=== PATIENT | male | born 1945 | race Caucasian/White ===

== ENCOUNTER 2023-04-20 14:49 | Emergency (ER) | payer OTHER, MEDICARE ==
[~2023-04-20] VITALS: Ht 167.6 cm; Wt 170.1 kg
[~2023-04-20 14:49] MED LIST: ALBUTEROL INH; ASPI325 PO; ATROVENT INH; CALCAVITD PO; CHOL10002; CITA20 PO; CYAN1000 PO; FISH1000 PO; Humulin N100 UNIT/1 SQ; INSUASPI SC; LEVO750 PO; LORA10 PO; METF500 PO; PRED10 PO; Prinivil10 MG PO; SIMV10 PO
[2023-04-20 15:17] VITALS: BP 148/88
[2023-04-20 16:14] LABS: BASOPHILS ABSOLUTE AUTO 0.06 K/mm3 (0.00-0.23); BASOPHILS PERCENT AUTO 1 % (0-2); EOSINOPHILS ABSOLUTE AUTO 0.11 K/mm3 (0.00-0.68); EOSINOPHILS PERCENT AUTO 1 % (0-6); Hematocrit 49.4 % (37.0-53.0); Hemoglobin 16.7 g/dL (13.5-17.5); IMMATURE GRAN ABSOLUTE AUTO 0.08 K/mm3 (0.00-0.10); IMMATURE GRAN PERCENT AUTO 1 % (0-1); LYMPHOCYTES PERCENT AUTO 27 % (21-46); MONOCYTES ABSOLUTE AUTO 0.89 K/mm3 (0.16-1.47); MONOCYTES PERCENT AUTO 7 % (4-13); Mean Corpuscular HGB 28.7 pg (26.0-34.0); Mean Corpuscular HGB Conc 33.8 g/dL (31.5-36.5); Mean Corpuscular Volume 85 fL (80-100); Mean Platelet Volume 11.5 fL (9.1-12.4); NEUTROPHILS ABSOLUTE AUTO 7.96 K/mm3 (1.96-9.15); NEUTROPHILS PERCENT AUTO 64 % (41-73); Platelet Count 317 K/mm3 (150-400); RDW Coefficient Variation 14.1 % (11.7-14.2); RDW Standard Deviation 43.1 fL (35.1-46.3); Red Blood Cell Count 5.81 M/mm3 (4.30-5.90)
[2023-04-20 16:33] LABS: Albumin, Blood 3.2 g/dL (3.4-5.0); Albumin/Globulin Ratio 0.9 (0.8-1.8); Bilirubin, Total 0.9 mg/dL (0.1-1.0); Bun/Creatinine Ratio 19.3 (12.0-20.0); Calcium, Blood 8.9 mg/dL (8.5-10.1); Creatinine, Blood 0.78 mg/dL (0.60-1.20); Globulin, Blood 3.7 g/dL (2.2-4.0); Potassium, Blood 3.7 mmol/L (3.5-5.5); Total Protein, Blood 6.9 g/dL (6.4-8.2)
[2023-04-20 17:07] LABS: BASOPHILS ABSOLUTE AUTO 0.07 K/mm3 (0.00-0.23); BASOPHILS PERCENT AUTO 1 % (0-2); EOSINOPHILS ABSOLUTE AUTO 0.15 K/mm3 (0.00-0.68); EOSINOPHILS PERCENT AUTO 1 % (0-6); Hematocrit 50.4 % (37.0-53.0); Hemoglobin 16.8 g/dL (13.5-17.5); IMMATURE GRAN ABSOLUTE AUTO 0.14 K/mm3 (0.00-0.10); IMMATURE GRAN PERCENT AUTO 1 % (0-1); LYMPHOCYTES PERCENT AUTO 33 % (21-46); MONOCYTES ABSOLUTE AUTO 1.06 K/mm3 (0.16-1.47); MONOCYTES PERCENT AUTO 7 % (4-13); Mean Corpuscular HGB 28.4 pg (26.0-34.0); Mean Corpuscular HGB Conc 33.3 g/dL (31.5-36.5); Mean Corpuscular Volume 85 fL (80-100); Mean Platelet Volume 10.9 fL (9.1-12.4); NEUTROPHILS ABSOLUTE AUTO 8.34 K/mm3 (1.96-9.15); NEUTROPHILS PERCENT AUTO 58 % (41-73); Platelet Count 344 K/mm3 (150-400); RDW Coefficient Variation 13.8 % (11.7-14.2); RDW Standard Deviation 42.9 fL (35.1-46.3); Red Blood Cell Count 5.91 M/mm3 (4.30-5.90); White Blood Cell Count 14.46 K/mm3 (4.00-11.30)
[2023-04-20 17:28] LABS: Albumin, Blood 3.5 g/dL (3.4-5.0); Albumin/Globulin Ratio 0.9 (0.8-1.8); Bun/Creatinine Ratio 18.2 (12.0-20.0); Creatinine, Blood 0.88 mg/dL (0.60-1.20); Globulin, Blood 3.8 g/dL (2.2-4.0); Potassium, Blood 3.6 mmol/L (3.5-5.5); Total Protein, Blood 7.3 g/dL (6.4-8.2)
== END 2023-04-20 18:39 | disposition home or self-care (01) ==
LOC: ER 14:49
PROVIDERS: Student in an Organized Health Care Education/Training Program
DX: Z04.3 Encounter for examination and observation following other accident (principal); I10 Essential (primary) hypertension; Z79.82 Long term (current) use of aspirin; Z79.52 Long term (current) use of systemic steroids; Z79.899 Other long term (current) drug therapy; Z87.891 Personal history of nicotine dependence; W01.0XXA Fall on same level from slipping, tripping and stumbling without subsequent striking against object, initial encounter; Y92.002 Bathroom of unspecified non-institutional (private) residence as the place of occurrence of the external cause
CPT/HCPCS: 71046; 80053; 82550; 83880; 84484; 85025; 93005; 93010; 99285-25

== ENCOUNTER 2023-04-21 07:14 | Inpatient (IN) | payer MEDICARE ==
[~2023-04-21] VITALS: Ht 167.6 cm; Wt 149.7 kg
[2023-04-21 08:23] LABS: BASOPHILS ABSOLUTE AUTO 0.03 K/mm3 (0.00-0.23); BASOPHILS PERCENT AUTO 0 % (0-2); EOSINOPHILS ABSOLUTE AUTO 0.03 K/mm3 (0.00-0.68); EOSINOPHILS PERCENT AUTO 0 % (0-6); Hematocrit 51.2 % (37.0-53.0); Hemoglobin 17.3 g/dL (13.5-17.5); IMMATURE GRAN ABSOLUTE AUTO 0.14 K/mm3 (0.00-0.10); IMMATURE GRAN PERCENT AUTO 1 % (0-1); LYMPHOCYTES ABSOLUTE AUTO 1.08 K/mm3 (0.84-5.20); LYMPHOCYTES PERCENT AUTO 7 % (21-46); MONOCYTES ABSOLUTE AUTO 0.55 K/mm3 (0.16-1.47); MONOCYTES PERCENT AUTO 4 % (4-13); Mean Corpuscular HGB 28.9 pg (26.0-34.0); Mean Corpuscular HGB Conc 33.8 g/dL (31.5-36.5); Mean Corpuscular Volume 86 fL (80-100); NEUTROPHILS ABSOLUTE AUTO 12.88 K/mm3 (1.96-9.15); NEUTROPHILS PERCENT AUTO 88 % (41-73); NRBC ABSOLUTE 0.02 K/mm3 (0.00-0.02); NRBC Auto 0.1 /100 WBC (0.0-0.2); RDW Coefficient Variation 13.9 % (11.7-14.2); RDW Standard Deviation 43.5 fL (35.1-46.3); Red Blood Cell Count 5.99 M/mm3 (4.30-5.90); White Blood Cell Count 14.71 K/mm3 (4.00-11.30)
[2023-04-21 08:27] LABS: Mean Platelet Volume 11.8 fL (9.1-12.4); Platelet Count 260 K/mm3 (150-400)
[2023-04-21 08:38] LABS: Albumin, Blood 3.1 g/dL (3.4-5.0); Albumin/Globulin Ratio 0.8 (0.8-1.8); Bilirubin, Direct 0.2 mg/dL (0.0-0.3); Bilirubin, Indirect 0.8 mg/dL (0.1-0.7); Bun/Creatinine Ratio 20.8 (12.0-20.0); Calcium, Blood 8.8 mg/dL (8.5-10.1); Creatinine, Blood 0.87 mg/dL (0.60-1.20); Globulin, Blood 3.9 g/dL (2.2-4.0); Magnesium, Blood 2.1 mg/dL (1.6-2.4); Potassium, Blood 4.3 mmol/L (3.5-5.5)
[2023-04-21 11:56] LABS: Source, Urine Clean Catch
[2023-04-21 12:02] LABS: Appearance, Urine Clear (Clear); Bilirubin, Urine Neg (Neg); Blood, Urine Neg (Neg); Color, Urine Yellow (P-Yellow); Glucose Qualitative, Urine 4+ (Neg); Ketones, Urine 4+ (Neg); Leukocyte Esterase, Urine Neg (Neg); Nitrite, Urine Neg (Neg); Protein, Urine 1+ (Neg); Specific Gravity, Urine 1.015 (1.003-1.022); Urobilinogen, Urine NORM (Normal)
[2023-04-21 15:19] VITALS: BP 120/61
--- NOTE | 2023-04-21 19:50 | NUR ---
NEW ADMIT/DAY SHIFT SUMMARY PT A/OX4. ADMIT FOR RECENT HX OF VOMITTING. ONE PERSON ASSIST WITH ACTIVITY. PT UNSTEADY ON FEET AND C/O OF DIZZINESS. [place] [facility] [place] PT REPORTS HE LIVES ALONE. 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 HE REPORTS [facility] AND STOPPED TAKING ALL HIS MEDS APROX 2 MONTHS AGO INCLUDING INSULIN. UPON ARRIVAL BLOOD SUGAR WS 420, THEN 456. PT TOLERATING WATER/ICE OK. HAD A FEW BITES OF DINNER AND BEGAN THROWING UP IMMEDIATELY. NO ZOFRAN OR FLUIDS ORDERED. SPOKE WITH DR MITCHELL AND THEN DR MARTINEZ. ORDERS FOR 500ML BOLUS AND THEN 2 LITERS OF LR. ORDER FOR ONE TIME CHRISSIE 8UNITS REGULAR INSULIN. ORDER FOR ZOFRAN--USE FIRST AND THEN REGLAN IF NOT EFFECTIVE. ORDER TO CHECK CBG AT 2100, 2300, AND 0200. HOLD 9PM NOVOLOG. MAKE PT NPO. PT TO HAVE EGD TOMORROW. REPORT GIVEN TO MANAGER INTERFACE NURSE.
[2023-04-21 19:55] LABS: Bun/Creatinine Ratio 24.5 (12.0-20.0); Calcium, Blood 9.1 mg/dL (8.5-10.1); Creatinine, Blood 0.82 mg/dL (0.60-1.20); Potassium, Blood 3.5 mmol/L (3.5-5.5)
[2023-04-21 20:00] VITALS: BP 114/83
[2023-04-22] VITALS (9 sets, daily range): BP systolic 128–166; BP diastolic 56–98
[2023-04-22 05:14] LABS: BASOPHILS ABSOLUTE AUTO 0.05 K/mm3 (0.00-0.23); BASOPHILS PERCENT AUTO 0 % (0-2); EOSINOPHILS ABSOLUTE AUTO 0.14 K/mm3 (0.00-0.68); EOSINOPHILS PERCENT AUTO 1 % (0-6); Hemoglobin 15.4 g/dL (13.5-17.5); IMMATURE GRAN ABSOLUTE AUTO 0.13 K/mm3 (0.00-0.10); IMMATURE GRAN PERCENT AUTO 1 % (0-1); LYMPHOCYTES ABSOLUTE AUTO 2.69 K/mm3 (0.84-5.20); LYMPHOCYTES PERCENT AUTO 20 % (21-46); MONOCYTES ABSOLUTE AUTO 1.19 K/mm3 (0.16-1.47); MONOCYTES PERCENT AUTO 9 % (4-13); Mean Corpuscular HGB 29.3 pg (26.0-34.0); Mean Corpuscular HGB Conc 34.2 g/dL (31.5-36.5); Mean Corpuscular Volume 86 fL (80-100); Mean Platelet Volume 11.1 fL (9.1-12.4); NEUTROPHILS ABSOLUTE AUTO 9.52 K/mm3 (1.96-9.15); NEUTROPHILS PERCENT AUTO 69 % (41-73); Platelet Count 278 K/mm3 (150-400); RDW Coefficient Variation 14.2 % (11.7-14.2); RDW Standard Deviation 43.8 fL (35.1-46.3); Red Blood Cell Count 5.25 M/mm3 (4.30-5.90); White Blood Cell Count 13.72 K/mm3 (4.00-11.30)
--- NOTE | 2023-04-22 07:51 | NUR ---
History, Chart, Medications and Allergies reviewed before start of procedure. Lungs clear T/O to Auscultation. Patient confirms NPO status and agrees with scheduled surgery. Pre-Op teaching done. Pt verbalizes understanding.
--- NOTE | 2023-04-22 08:11 | NUR ---
04/22/23 0811 Loreta Erwin SEE ANESTHESIA RECORD FOR SEDATION
--- NOTE | 2023-04-22 18:31 | NUR ---
SHIFT SUMMARY PT AXO, PLEASANT AND COOPERATIVE WITH CARE. VSS. PT NOT TOLERATING DIET THIS SHIFT. PT COMPLAINS OF PAIN AND VOMITS WITH EACH MEAL. DR SALOMON NOTIFIED. THIS NURSE TO GIVE REGLAN PER EMAR. PT HAD EGD THIS SHIFT. IV PATENT AND SALINE LOCKED. PT UP WITH 1 ASSIST TO BSC. BED IN LOW POSITION, CALL LIGHT WITHIN REACH.
[2023-04-23 03:59] VITALS: BP 147/63
[2023-04-23 04:56] LABS: BASOPHILS ABSOLUTE AUTO 0.05 K/mm3 (0.00-0.23); BASOPHILS PERCENT AUTO 1 % (0-2); EOSINOPHILS ABSOLUTE AUTO 0.14 K/mm3 (0.00-0.68); EOSINOPHILS PERCENT AUTO 2 % (0-6); Hematocrit 45.3 % (37.0-53.0); Hemoglobin 14.7 g/dL (13.5-17.5); IMMATURE GRAN ABSOLUTE AUTO 0.04 K/mm3 (0.00-0.10); IMMATURE GRAN PERCENT AUTO 0 % (0-1); LYMPHOCYTES ABSOLUTE AUTO 2.37 K/mm3 (0.84-5.20); LYMPHOCYTES PERCENT AUTO 25 % (21-46); MONOCYTES ABSOLUTE AUTO 0.81 K/mm3 (0.16-1.47); MONOCYTES PERCENT AUTO 9 % (4-13); Mean Corpuscular HGB 28.7 pg (26.0-34.0); Mean Corpuscular HGB Conc 32.5 g/dL (31.5-36.5); Mean Corpuscular Volume 88 fL (80-100); Mean Platelet Volume 10.9 fL (9.1-12.4); NEUTROPHILS ABSOLUTE AUTO 5.96 K/mm3 (1.96-9.15); NEUTROPHILS PERCENT AUTO 64 % (41-73); Platelet Count 217 K/mm3 (150-400); RDW Standard Deviation 45.1 fL (35.1-46.3); Red Blood Cell Count 5.13 M/mm3 (4.30-5.90); White Blood Cell Count 9.37 K/mm3 (4.00-11.30)
[2023-04-23] MEDS ORDERED: DICLOFENAC SOD100 G1 TOP (05:58)
[2023-04-23] MEDS ORDERED: JARDIANCE25 MG PO (05:58)
[2023-04-23] MEDS ORDERED: BASAGLAR K100 UNIT/1 SC (05:59)
[2023-04-23] MEDS ORDERED: LISI5 PO (05:59)
[2023-04-23] MEDS ORDERED: METF500 PO (06:00)
[2023-04-23] MEDS ORDERED: ROSU5 PO (06:00)
--- NOTE | 2023-04-23 06:46 | NUR ---
SHIFT SUMMERY. PT RESTING IN BED, PT SAID HE FELT OF NOT NAUSEATED. PT HAS BOWEL TONES BUT UNKOWN WHEN LAST BM WAS. PT HOPEFULL TO GO HOME TODAY. PT GOING BACK TO SLEEP AFTER MEDS GIVEN. FIRE SAFETY REVIEWED.
[2023-04-23 07:47] VITALS: BP 125/87
[2023-04-23] MEDS ORDERED: PANT40 PO (15:31)
[2023-04-23] MEDS ORDERED: INSULIN GL100 UNIT/4 SQ (15:36)
[2023-04-23 15:52] VITALS: BP 136/44
[2023-04-23] MEDS ORDERED: HUMALOG KW100 UNIT/1 SC (16:46)
--- NOTE | 2023-04-23 17:16 | NUR ---
DISCHARGE SUMMARY PT AxOx4, COOPERATIVE WITH CARE. PT DENIES ABDOMINAL DISCOMFORT, N/V THIS SHIFT. PT WAS ABLE TO EAT SOME OF HIS MEALS, BUT REPORTED POOR APPETITE. VITALS REVIEWED. PT REPORTED FEELING READY AND EAGER TO DC FROM [employer] EDITOR. PT'S MOOD BECAME IRRITABLE THE DAY WENT ON AND HIS DISCHARGE WAS NOT COMPLETED. PT WAS MADE AWARE THAT THE PHYSICIAN'S ELECTRONIC ORDERS SYSTEM WAS DOWN FOR A COUPLE HOURS DURING THE DAY, BUT THE PATIENT REMAINED IMPATIENT AND VERBALLY AGGRAVATED WITH STAFF. THERAPEUTIC COMMUNICATION PROVIDED. PT WAS ALSO GIVEN THE CONTACT INFORMATION FOR THE PATIENT ADVOCATE AND ENCOURAGED TO REACH OUT IF NEEDED. PT WAS GIVEN DC INSTRUCTIONS INCLUDING DC MEDICATIONS, NEW INSULIN ORDERS AND BLOOD GLUCOSE CHECKS, FOLLOW UP APPOINTMENTS INCLUDING CALLING [facility] AND REQUESST F/U APPT, AND PATIENT EDUCATION INCLUDING NEW MEDICATIONS AND NEW DIAGNOSIS. PT VERBALIZED UNDERSTANDING. 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
== END 2023-04-23 17:20 | disposition home or self-care (01) | DRG 381 ==
LOC: ER 07:14 → MEDS 07:15
PROVIDERS: Family Medicine; Internal Medicine Gastroenterology; Student in an Organized Health Care Education/Training Program; ADMIT Hospitalist
PROC: 0DB38ZX Excision of Lower Esophagus, Via Natural or Artificial Opening Endoscopic, Diagnostic (ICD-10-PCS; principal; 2023-04-22 09:30)
DX: K22.10 Ulcer of esophagus without bleeding (principal); E87.1 Hypo-osmolality and hyponatremia; Z68.43 Body mass index [BMI] 50.0-59.9, adult; K25.9 Gastric ulcer, unspecified as acute or chronic, without hemorrhage or perforation; J44.9 Chronic obstructive pulmonary disease, unspecified; E11.65 Type 2 diabetes mellitus with hyperglycemia; I11.9 Hypertensive heart disease without heart failure; D72.829 Elevated white blood cell count, unspecified; E66.01 Morbid (severe) obesity due to excess calories; Z85.46 Personal history of malignant neoplasm of prostate; Z87.891 Personal history of nicotine dependence; Z90.79 Acquired absence of other genital organ(s); Z79.82 Long term (current) use of aspirin; Z79.4 Long term (current) use of insulin; Z79.899 Other long term (current) drug therapy; Z79.84 Long term (current) use of oral hypoglycemic drugs; Z92.21 Personal history of antineoplastic chemotherapy; Z92.3 Personal history of irradiation
CPT/HCPCS: 36415; 74177; 80048; 80076; 82947; 83036; 83690; 83735; 84484; 85025; 88305; 93005; 93010; 96360; 96361; 96372; 96374; 96375; 96376; 99285-25; A9270; C9113; G0378; J1650; J1815; J2405; J2704; J2765; J7030; J7120; Q9967